=== PATIENT | male | born 1960 | race Caucasian/White ===

== ENCOUNTER 2022-01-06 13:14 | Day surgery (SDC) | payer BC ==
[~2022-01-06] VITALS: Ht 188 cm; Wt 108.0 kg
[~2022-01-06 13:14] MED LIST: Amaryl1 MG; CALCA500CH; CALCAVITD; CHOL10002; CLON1; CYCL10; Doxycycline Hyc50 MG; EMERGEN-C 1,01000 MG; HYDR1TAB94; MAGOXI400; METF500; NAPR500EC; POTASSIUM; Qualaquin324 MG; ZESTRIL40 MG
== END 2022-01-06 15:38 | disposition home or self-care (01) ==
LOC: ORSCSDS 13:14
PROVIDERS: Internal Medicine Gastroenterology
PROC: 0DB68ZX Excision of Stomach, Via Natural or Artificial Opening Endoscopic, Diagnostic (ICD-10-PCS; principal; 2022-01-06 14:30)
PROC: 0DB58ZX Excision of Esophagus, Via Natural or Artificial Opening Endoscopic, Diagnostic (ICD-10-PCS; principal; 2022-01-06 14:30)
DX: R13.14 Dysphagia, pharyngoesophageal phase (principal); K22.2 Esophageal obstruction; K29.70 Gastritis, unspecified, without bleeding; K22.89 Other specified disease of esophagus; K44.9 Diaphragmatic hernia without obstruction or gangrene; E11.9 Type 2 diabetes mellitus without complications; E66.9 Obesity, unspecified; Z68.31 Body mass index [BMI] 31.0-31.9, adult; F17.220 Nicotine dependence, chewing tobacco, uncomplicated; Z79.84 Long term (current) use of oral hypoglycemic drugs; Z79.899 Other long term (current) drug therapy
CPT/HCPCS: 82947; 88305; 88312; 88342; J2704; J7120

== ENCOUNTER 2025-01-18 10:51 | Day surgery (SDC) | payer OTHER ==
[~2025-01-18] VITALS: Ht 188 cm; Wt 113.5 kg
[~2025-01-18 10:51] MED LIST changes: +Atropine Sulfate 0.1 MG/ML 10ML SYR ONE; +Glycopyrrolate 0.2 MG/ML 1MLVIAL ONE; +Lactated Ringer's 1,000 ML IV ONE; +Lidocaine 2% 5 ML SDV ONE; +Lidocaine HCl/Pf 1% 5 ML VIAL ONE; +Ondansetron HCl 2 MG / ML 2ML Vial ONE; +ePHEDrine Sulfate 50 MG/ML 1ML Injection ONE; +propofoL 50 ML IV ONE
[2025-01-18] MEDS ORDERED: HYDCHL25 (11:48)
[2025-01-18] MEDS ORDERED: ACTOS30 MG (11:49)
[2025-01-18] MEDS ORDERED: Lactated Ringer's 1,000 ML IV ONE (12:22)
[2025-01-18 13:25] VITALS: BP 136/84
== END 2025-01-18 13:27 | disposition home or self-care (01) ==
LOC: ORSCSDS 10:51
PROVIDERS: Internal Medicine Gastroenterology
PROC: 0DJ08ZZ Inspection of Upper Intestinal Tract, Via Natural or Artificial Opening Endoscopic (ICD-10-PCS; principal; 2025-01-18 13:00)
PROC: 0D757ZZ Dilation of Esophagus, Via Natural or Artificial Opening (ICD-10-PCS; principal; 2025-01-18 13:00)
DX: R13.10 Dysphagia, unspecified (principal); K22.2 Esophageal obstruction; E11.9 Type 2 diabetes mellitus without complications; Z72.0 Tobacco use; K21.9 Gastro-esophageal reflux disease without esophagitis; Z79.84 Long term (current) use of oral hypoglycemic drugs; Z79.899 Other long term (current) drug therapy
CPT/HCPCS: 82947; J0461; J2003; J2405; J2704; J7120